=== PATIENT | female | born 1975 | race African-American/Black ===

== ENCOUNTER → 2018-05-13 | Outpatient (REF) ==
[~2018-05-13] MED LIST: (None)3.5 GM OP; AMOXICILLIN/CL875 MG PO; AUGMENTIN875TAB OR; CIPROFLOXACN500 MG PO; CONCEPT OB PO; DEPO-MEDROL80 MG/ML IM; DEPO-PROVER150 MG/ML IM; DIFLUCAN150 MG OR; EC-NAPROSYN500 MG PO; FLEXERIL OR; FLEXERIL PO; FLEXERIL5 MG PO; GENTAMICIN15 ML/BTL OP; LORTAB 7.5 PO; MEDDOSEPAK OR; MEDDOSEPAK PO; NAPROSYN500 MG PO; NO HOME MEDS; POLYTRIM OU; PRENATAL1 TAB PO; TORADOL IM; TRAMADOL HCL50 MG PO; ZOLOFT25 MG PO
[2018-05-13 08:19] LABS: CHOLESTEROL HDL RATIO 5.1 (<4.4 (CALC))
== END | disposition home or self-care (01) | DRG 951 ==
LOC: LAB 07:33
PROVIDERS: ATTEND Family Medicine
DX: Z02.6 Encounter for examination for insurance purposes (principal)

== ENCOUNTER 2023-02-10 08:09 | Day surgery (SDC) | payer OTHER ==
[~2023-02-10 08:09] MED LIST changes: +ALLERGY RE50 MCG/ACT; +AMITRIPTYLIN25 MG PO; +ASPIRIN ADULT L81 M2 PO; +COZAAR50 MG PO; +HYDROCHLOROT25 MG PO; +HYDROXYCHLOR200 MG PO; +LEFLUNOMIDE10 MG PO; +MELOXICAM15 MG PO; +MONTELUKAST SOD10 MG PO; +PREDNISONE5 MG PO
[2023-02-10 10:16] VITALS: BP 140/91
== END 2023-02-10 10:33 | disposition home or self-care (01) | DRG 392 ==
LOC: ORM 08:09
PROVIDERS: ATTEND Internal Medicine Gastroenterology
PROC: 0DB98ZX Excision of Duodenum, Via Natural or Artificial Opening Endoscopic, Diagnostic (ICD-10-PCS; principal; 2023-02-10)
PROC: 0DB78ZX Excision of Stomach, Pylorus, Via Natural or Artificial Opening Endoscopic, Diagnostic (ICD-10-PCS; 2023-02-10)
DX: K29.50 Unspecified chronic gastritis without bleeding (principal)